=== PATIENT | female | born 1940 | race Caucasian/White ===

== ENCOUNTER 2017-06-22 15:44 | Emergency (ER) | payer OTHER ==
[~2017-06-22] VITALS: Ht 160 cm; Wt 61.8 kg
[2017-06-22 18:42] LABS: HEMATOCRIT 36.7 % (36.0-46.0); MCHC 32.2 G/DL (30.0-36.0); MCV 93.4 FL (83-99); MEAN PLAT.VOLUME 9.5 uM^3 (9.5-12.4); PLATELET COUNT 354 K/uL (156-360); RBC DIS.WIDTH-CV 12.4 % (11.8-14.6); RED BLOOD COUNT 3.93 M/uL (3.80-5.20); WHITE BLOOD COUNT 9.9 K/uL (4.1-10.2)
[2017-06-22 18:45] LABS: ADD MIUA? YES; BILIRUBIN NEGATIVE; BLOOD SMALL; COLOR AMBER ((YELLOW)); GLUCOSE (STRIP) NEGATIVE; KETONES NEGATIVE; LEUKOCYTES LARGE; NITRITE POSITIVE; PROTEIN (STRIP) 30; SPECIFIC GRAVITY 1.017 (1.000-1.030); UROBILINOGEN 0.2 MG/DL (0.2-1.0)
[2017-06-22 18:55] LABS: CHLORIDE 100 mEq/L (99-109); POTASSIUM 3.5 mEq/L (3.7-5.4)
[2017-06-22 18:56] LABS: SODIUM 136 mEq/L (136-147)
[2017-06-22 18:58] LABS: GLUCOSE 106 mg/dL (70-99)
[2017-06-22 18:59] LABS: ANION GAP 11 MEQ/L (2-14)
[2017-06-22 19:00] LABS: TOTAL BILIRUBIN 0.3 mg/dL (0.0-1.0)
[2017-06-22 19:01] LABS: ALKALINE PHOSPHATASE 69 IU/L (3-129); GFR ESTIMATE (CALCULATED) 57 mL/min/
[2017-06-22 19:03] LABS: UREA NITROGEN (BUN) 20 mg/dL (9-23)
[2017-06-22 19:04] LABS: BACTERIA 2+ /HPF; EPITHELIAL CELLS 1+ /HPF; MUCUS TRACE /LPF; UCUL ADDED? YES; WHITE BLOOD CELLS TNTC /HPF (0-5)
[2017-06-22] MEDS ORDERED: KEFLEX500 MG PO (19:19)
[2017-06-22 19:55] VITALS: BP 130/65
== END 2017-06-22 19:58 | disposition home or self-care (01) ==
LOC: EME 15:44
PROVIDERS: Nurse Practitioner Family
DX: N39.0 Urinary tract infection, site not specified (principal); L89.622 Pressure ulcer of left heel, stage 2; F03.90 Unspecified dementia, unspecified severity, without behavioral disturbance, psychotic disturbance, mood disturbance, and anxiety
CPT/HCPCS: 73630; 80053; 81003; 85027; 87086; 99281; 99284

== ENCOUNTER 2017-07-07 13:24 | Inpatient (IN) | payer OTHER ==
[~2017-07-07] VITALS: Ht 165.1 cm; Wt 61.3 kg
[~2017-07-07 13:24] MED LIST: KEFLEX500 MG PO
[2017-07-07 13:58] LABS: HEMATOCRIT 43.8 % (36.0-46.0); MCH 29.6 PG (29.0-34.0); MCHC 31.1 G/DL (30.0-36.0); MCV 95.4 FL (83-99); MEAN PLAT.VOLUME 10.1 uM^3 (9.5-12.4); PLATELET COUNT 305 K/uL (156-360); RBC DIS.WIDTH-CV 13.2 % (11.8-14.6); RBC DIS.WIDTH-SD 46.3 % (39-53); RED BLOOD COUNT 4.59 M/uL (3.80-5.20); WHITE BLOOD COUNT 13.3 K/uL (4.1-10.2)
[2017-07-07 14:10] LABS: CHLORIDE 102 mEq/L (99-109); POTASSIUM 3.7 mEq/L (3.7-5.4); SODIUM 141 mEq/L (136-147)
[2017-07-07 14:13] LABS: GLUCOSE 190 mg/dL (70-99)
[2017-07-07 14:14] LABS: ANION GAP 14 MEQ/L (2-14)
[2017-07-07 14:15] LABS: TOTAL BILIRUBIN 0.3 mg/dL (0.0-1.0)
[2017-07-07 14:16] LABS: ALKALINE PHOSPHATASE 76 IU/L (3-129); GFR ESTIMATE (CALCULATED) 51 mL/min/
[2017-07-07 14:17] LABS: UREA NITROGEN (BUN) 29 mg/dL (9-23)
[2017-07-07 17:35] LABS: ADD MIUA? YES; BILIRUBIN NEGATIVE; BLOOD NEGATIVE; COLOR YELLOW ((YELLOW)); GLUCOSE (STRIP) NEGATIVE; KETONES NEGATIVE; LEUKOCYTES TRACE; NITRITE POSITIVE; PROTEIN (STRIP) NEGATIVE; SPECIFIC GRAVITY 1.024 (1.000-1.030)
[2017-07-07 17:43] LABS: BACTERIA NONE SEEN /HPF; BUDDING YEAST 3+; EPITHELIAL CELLS 1+ /HPF; HYALINE CASTS 0-5 /LPF; MUCUS 1+ /LPF; UCUL ADDED? YES; UNCLASSIFIED CASTS 0-5 /LPF; WHITE BLOOD CELLS 15-20 /HPF (0-5)
[2017-07-07 22:57] VITALS: BP 170/90
[2017-07-07] MEDS ORDERED: ARICEPT5 MG PO (23:20)
[2017-07-07] MEDS ORDERED: LO-DOSE ASPIRIN81 M1 PO (23:20)
[2017-07-07] MEDS ORDERED: MOTRIN IB200 MG PO (23:21)
[2017-07-07] MEDS ORDERED: KEFLEX500 MG PO (23:23)
[2017-07-07] MEDS ORDERED: ANTIVERT25 MG PO (23:24)
[2017-07-07] MEDS ORDERED: SYNTHROID75 MCG PO (23:24)
[2017-07-07] MEDS ORDERED: BRINTELLIX5 MG PO (23:25)
[2017-07-08 00:04] VITALS: BP 170/90
[2017-07-08 06:05] LABS: HEMATOCRIT 38.2 % (36.0-46.0); MCH 29.1 PG (29.0-34.0); MCHC 31.2 G/DL (30.0-36.0); MCV 93.4 FL (83-99); MEAN PLAT.VOLUME 10.4 uM^3 (9.5-12.4); PLATELET COUNT 313 K/uL (156-360); RBC DIS.WIDTH-SD 44.5 % (39-53); RED BLOOD COUNT 4.09 M/uL (3.80-5.20); WHITE BLOOD COUNT 11.1 K/uL (4.1-10.2)
[2017-07-08 06:30] LABS: ANION GAP 8 MEQ/L (2-14); CHLORIDE 101 MEQ/L (99-109); GFR ESTIMATE (CALCULATED) > 59 mL/min/; POTASSIUM 3.5 MEQ/L (3.7-5.4); SAMPLE HEMOLYSIS CHECK 0; SAMPLE ICTERIC CHECK 0; SAMPLE LIPEMIA CHECK 0; SODIUM 137 MEQ/L (136-147); UREA NITROGEN (BUN) 23 mg/dL (9-23)
[2017-07-08 06:31] LABS: GLUCOSE 86 mg/dL (70-99)
[2017-07-08 07:24] VITALS: BP 123/61
[2017-07-08 07:25] VITALS: BP 123/61; BP 166/101
[2017-07-08 16:30] VITALS: BP 165/74
[2017-07-09 00:23] VITALS: BP 155/70
[2017-07-09 07:41] VITALS: BP 192/88
[2017-07-09 15:41] VITALS: BP 163/74
[2017-07-10 00:15] VITALS: BP 149/73
[2017-07-10 05:58] LABS: EOSINOPHIL (%) 2.5 % (0-5); EOSINOPHIL COUNT 0.3 K/uL (0-0.3); HEMATOCRIT 37.8 % (36.0-46.0); IMMATURE GRANULOCYTE (%) 0.9 % (0.0-0.7); IMMATURE GRANULOCYTE COUNT 0.1 K/uL; INSTRUMENT ABS NEUTROPHIL CT 7.2 K/uL; MCH 30.2 PG (29.0-34.0); MCHC 32.8 G/DL (30.0-36.0); MCV 92.2 FL (83-99); MEAN PLAT.VOLUME 10.2 uM^3 (9.5-12.4); MONOCYTE (%) 6.9 % (3-12); MONOCYTE COUNT 0.7 K/uL (0-0.8); NEUTROPHIL (%) 69.8 % (45-76); NEUTROPHIL COUNT 7.2 K/uL (1.8-6.4); PLATELET COUNT 330 K/uL (156-360); RBC DIS.WIDTH-SD 43.6 % (39-53); WHITE BLOOD COUNT 10.3 K/uL (4.1-10.2)
[2017-07-10 06:22] LABS: ANION GAP 8 MEQ/L (2-14); CHLORIDE 104 MEQ/L (99-109); GFR ESTIMATE (CALCULATED) > 59 mL/min/; GLUCOSE 94 mg/dL (70-99); POTASSIUM 4.1 MEQ/L (3.7-5.4); SAMPLE HEMOLYSIS CHECK 0; SAMPLE ICTERIC CHECK 0; SAMPLE LIPEMIA CHECK 0; SODIUM 141 MEQ/L (136-147); UREA NITROGEN (BUN) 14 mg/dL (9-23)
[2017-07-10 08:15] VITALS: BP 136/60
[2017-07-10 16:15] VITALS: BP 113/58
[2017-07-11 01:53] VITALS: BP 144/69
[2017-07-11 07:10] VITALS: BP 133/62
[2017-07-11 11:10] VITALS: BP 120/56
[2017-07-11 12:45] VITALS: BP 107/55
[2017-07-11 15:12] VITALS: BP 107/55
[2017-07-11 16:27] VITALS: BP 118/56
[2017-07-12 00:13] VITALS: BP 114/56
[2017-07-12 08:00] VITALS: BP 149/69
[2017-07-12 15:39] VITALS: BP 149/69
[2017-07-12 23:40] VITALS: BP 128/60
[2017-07-13 05:53] LABS: EOSINOPHIL (%) 2.4 % (0-5); EOSINOPHIL COUNT 0.2 K/uL (0-0.3); HEMATOCRIT 36.2 % (36.0-46.0); IMMATURE GRANULOCYTE (%) 0.9 % (0.0-0.7); IMMATURE GRANULOCYTE COUNT 0.1 K/uL; INSTRUMENT ABS NEUTROPHIL CT 6.5 K/uL; MCH 30.1 PG (29.0-34.0); MCV 93.8 FL (83-99); MEAN PLAT.VOLUME 10.6 uM^3 (9.5-12.4); MONOCYTE (%) 8.4 % (3-12); MONOCYTE COUNT 0.8 K/uL (0-0.8); NEUTROPHIL (%) 67.3 % (45-76); NEUTROPHIL COUNT 6.5 K/uL (1.8-6.4); PLATELET COUNT 350 K/uL (156-360); RBC DIS.WIDTH-CV 13.7 % (11.8-14.6); RBC DIS.WIDTH-SD 46.5 % (39-53); RED BLOOD COUNT 3.86 M/uL (3.80-5.20); WHITE BLOOD COUNT 9.6 K/uL (4.1-10.2)
[2017-07-13 06:21] LABS: ANION GAP 9 MEQ/L (2-14); C-REACTIVE PROTEIN 14.6 MG/L (0-10); CHLORIDE 104 MEQ/L (99-109); GFR ESTIMATE (CALCULATED) > 59 mL/min/; GLUCOSE 92 mg/dL (70-99); POTASSIUM 4.1 MEQ/L (3.7-5.4); SAMPLE HEMOLYSIS CHECK 0; SAMPLE ICTERIC CHECK 0; SAMPLE LIPEMIA CHECK 0; SODIUM 141 MEQ/L (136-147); UREA NITROGEN (BUN) 14 mg/dL (9-23)
[2017-07-13 07:26] LABS: ERTH.SED.RATE 38 MM/HR (0-30)
[2017-07-13 10:04] VITALS: BP 140/104
[2017-07-13 10:44] VITALS: BP 119/60
[2017-07-13 15:37] VITALS: BP 118/57
[2017-07-13 23:26] VITALS: BP 101/54
[2017-07-14 08:15] VITALS: BP 122/66
[2017-07-14 11:00] VITALS: BP 116/56
[2017-07-14 15:20] VITALS: BP 112/55
[2017-07-14 23:30] VITALS: BP 120/60
[2017-07-15 07:35] VITALS: BP 120/59
[2017-07-15] MEDS ORDERED: LOSARTAN POTAS100 MG PO (12:37)
[2017-07-15] MEDS ORDERED: Tylenol Extra Streng PO (12:38)
[2017-07-15] MEDS ORDERED: FAMOTIDINE20 MG PO (12:42)
== END 2017-07-15 17:23 | DRG 593 ==
LOC: EME 13:24 → 5EAST 18:16 → EDOF 18:16 → ENRESERV 18:56 → 5EAST 22:24
PROVIDERS: Emergency Medicine; Family Medicine Sports Medicine
DX: L89.620 Pressure ulcer of left heel, unstageable (principal); L08.89 Other specified local infections of the skin and subcutaneous tissue; L89.612 Pressure ulcer of right heel, stage 2; N39.0 Urinary tract infection, site not specified; F03.90 Unspecified dementia, unspecified severity, without behavioral disturbance, psychotic disturbance, mood disturbance, and anxiety; E03.9 Hypothyroidism, unspecified; N39.3 Stress incontinence (female) (male); L30.9 Dermatitis, unspecified; B96.5 Pseudomonas (aeruginosa) (mallei) (pseudomallei) as the cause of diseases classified elsewhere; M24.562 Contracture, left knee; Z79.82 Long term (current) use of aspirin; Z79.899 Other long term (current) drug therapy; Z72.0 Tobacco use; Z66 Do not resuscitate
CPT/HCPCS: 70450; 71010; 80048; 80053; 81003; 83605; 85025; 85027; 85651; 86140; 87040; 87077; 87086; 87186; 93005; 99281; 99285; J0692; J0696; J1650; J7030; J7050; J7120